=== PATIENT | male | born 1965 | race Caucasian/White ===

== ENCOUNTER 2021-09-14 12:51 | Emergency (ER) | payer OTHER ==
[~2021-09-14] VITALS: Ht 175.3 cm; Wt 84.9 kg
== END 2021-09-14 14:02 | disposition home or self-care (01) ==
LOC: ED 12:51
DX: Z04.3 Encounter for examination and observation following other accident (principal); G40.909 Epilepsy, unspecified, not intractable, without status epilepticus; K21.9 Gastro-esophageal reflux disease without esophagitis
CPT/HCPCS: 99283

== ENCOUNTER 2021-12-21 00:25 | Emergency (ER) | payer OTHER ==
[~2021-12-21] VITALS: Ht 175.3 cm; Wt 84.9 kg
[2021-12-21] MEDS ORDERED: KEPPRA750 MG PO (00:43)
[2021-12-21] MEDS ORDERED: LEXAPRO20 MG PO (00:43)
[2021-12-21] MEDS ORDERED: HYDROXYZINE PAM50 MG PO (00:44)
[2021-12-21] MEDS ORDERED: BUSPIRONE HCL10 MG PO (00:44)
[2021-12-21] MEDS ORDERED: ESTRACE2 MG PO (00:45)
[2021-12-21] MEDS ORDERED: ACID CONTROLLER20 MG PO (00:45)
[2021-12-21] MEDS ORDERED: CLARITIN10 M2 PO (00:55)
[2021-12-21] MEDS ORDERED: MELATONIN5 M2 PO (00:56)
[2021-12-21] MEDS ORDERED: SPIRONOLACTONE100 MG NG (00:56)
[2021-12-21] MEDS ORDERED: K-TAB ER20 MEQ PO (02:38)
[2021-12-21] MEDS ORDERED: PERIDEX473 M1 MM (02:55)
== END 2021-12-21 03:01 | disposition home or self-care (01) ==
LOC: ED 00:25
DX: G40.909 Epilepsy, unspecified, not intractable, without status epilepticus (principal); K21.9 Gastro-esophageal reflux disease without esophagitis; Z79.899 Other long term (current) drug therapy
CPT/HCPCS: 70450; 80053; 80177; 81001; 85025; 96374; 99284-25; A9270; J1953